=== PATIENT | female | born 1980 | race African-American/Black ===

== ENCOUNTER 2021-09-23 21:03 | Emergency (ER) | payer SELFPAY ==
[2021-09-23 21:19] VITALS: BP 100/68; PULSE 75; TEMP 98.9; BMI 28.3
[2021-09-23] MEDS ORDERED: ASPIRIN 81 MG CHEWABLE TABLETS PO ONE (22:22)
[2021-09-23] MEDS ORDERED: ASPIRIN 81 MG CHEWABLE TABLETS ONE (22:32)
[2021-09-23 23:16] LABS: BASO % 0.7 % (0-2.0); EOS % 1.5 % (0-4.5); HEMATOCRIT 37.5 % (32.4-45.2); HEMOGLOBIN 12.4 GM/dL (10.7-15.3); LYMPH % 40.2 % (8-40); MCH 30.2 pg (25.7-33.7); MCHC 33.1 g/dl (32.0-36.0); MEAN CELL VOLUME 91.3 fl (80-96); MEAN PLT VOLUME 7.5 fl (7.5-11.1); MONO % 8.5 % (3.8-10.2); NEUT % 49.1 % (42.8-82.8); PLATELET COUNT 320 10^3/uL (134-434); RBC 4.11 M/mm3 (3.60-5.2); RDW 13.6 % (11.6-15.6); WHITE BLOOD COUNT 6.2 K/mm3 (4.0-10.0)
[2021-09-23 23:25] LABS: INR 0.97 (0.83-1.09); PROTHROMBIN TIME (PATIENT) 11.1 SEC (9.7-13.0)
[2021-09-23 23:28] LABS: ACTIVATED PTT 31.5 SECONDS (25.2-36.5)
[2021-09-23 23:44] LABS: CALCIUM 8.8 mg/dL (8.5-10.1)
[2021-09-23 23:45] LABS: ALBUMIN 3.6 g/dl (3.4-5.0); BLOOD UREA NITROGEN 10.3 mg/dL (7-18); MAGNESIUM 2.2 mg/dL (1.8-2.4)
[2021-09-23 23:48] LABS: CREATININE 0.9 mg/dL (0.55-1.3)
[2021-09-23 23:49] LABS: TOT PROT 7.4 g/dl (6.4-8.2)
[2021-09-23 23:50] LABS: BILIRUBIN,TOTAL 0.2 mg/dL (0.2-1)
[2021-09-24] MEDS ORDERED: NAPROXEN 500 MG TABLET PO ONE (00:10)
[2021-09-24] MEDS ORDERED: NAPROXEN 500 MG TABLET ONE (00:18)
== END 2021-09-24 02:31 | disposition home or self-care (01) ==
LOC: JER 21:03
DX: M54.2 Cervicalgia (principal); R00.2 Palpitations; M25.512 Pain in left shoulder
CPT/HCPCS: 36415; 71046-TC-FY; 80053; 83735; 84443; 84484; 85025; 85610; 85730; 93005; 93010; 99285-25

== ENCOUNTER → 2024-10-12 | Day surgery (SDC) | payer OTHER | END | disposition home or self-care (01) | LOC: JRADUS 08:38 → JRADUS-SUR 08:38 | PROVIDERS: ATTEND Specialist | PROC: 0HBU3ZX Excision of Left Breast, Percutaneous Approach, Diagnostic (ICD-10-PCS; principal; 2024-10-12) | DX: Z53.8 Procedure and treatment not carried out for other reasons (principal) | CPT/HCPCS: 76642-TC-LT; 77065-TC; G0279-TC ==